=== PATIENT | male | born 1950 | race Caucasian/White ===

== ENCOUNTER → 2016-11-12 | Outpatient (CLI) | payer OTHER | LOC: FCPNEURO 20:30 | PROVIDERS: ATTEND Psychiatry & Neurology Sleep Medicine | DX: G47.33 Obstructive sleep apnea (adult) (pediatric) (principal); G47.39 Other sleep apnea ==

== ENCOUNTER 2017-12-05 13:44 | Emergency (ER) | payer OTHER ==
[2017-12-05 13:57] VITALS: RESP 16; TEMP 99.1
--- NOTE | 2017-12-05 14:53 | EDPHY ---
General - History Smoking Status: Never smoked Time Seen by Provider: 12/05/17 14:40 Narrative: CHIEF COMPLAINT: Fall, left hip pain HISTORY OF PRESENT ILLNESS: Patient complains of left groin and hip pain after fall earlier today. This happened around 9:15 a.m. While at [place]. He slipped in the parking lot. He says he actually landed on the right hip but felt the pain in the left side. It was at 1st mild. He was able to ski 2 rounds with some pain but able to do so. After this his pain has increased with active motion of the hip. It is minimal at rest. Does not radiate. No numbness or tingling. No head injury or loss of consciousness or headache. No chest or back pain. No neck pain. No abdominal pain. No injury to the right leg or either of his arms. No other associated complaints or modifying factors. REVIEW OF SYSTEMS: Ten systems reviewed and are negative unless otherwise noted in the HPI PCP: Dr. Dedra Reyes SPECIALISTS: Dr. Marie PAST MEDICAL HISTORY: Osteoarthritis, colitis, atrial fibrillation, sleep apnea PAST SURGICAL HISTORY: Plasty, right shoulder ORIF SOCIAL HISTORY: Never smoker. No drug or alcohol use. 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 No crepitus or deformity Respiratory: Lungs are clear to auscultation Cardiovascular: Regular rate and rhythm. No murmur. Symmetric DP and PT pulses 2+. Gastrointestinal: Abdomen is soft and nontender. No tympany rigidity. No evidence of inguinal hernia by examination. Back: non-tender, no bony abnormalities Neurological: A&O, nonfocal, antalgic but steady gait. Strength is symmetric in the lower extremities. No footdrop on the left. Skin: Warm and dry, no rash. No petechiae or purpura. No ecchymosis in the area of pain. Extremities: Nontender, no pedal edema Psychiatric: Mood and affect normal DIFFERENTIAL DIAGNOSES: Including but not limited to strain, sprain, fracture, dislocation, subluxation MDM: 2:40 p.m. Left hip pain status post fall today. There is pain over the inguinal canal with no obvious fracture on x-ray as read by me. He was able to bear weight after this, thus I have a low suspicion for fracture but I would like to rule this out definitively the CT scan. This will be done without contrast. The patient's spouse are comfortable this. He has declined pain medication. He is neurovascular intact. 3:05 p.m. Radiologist has read the plain film as negative for acute finding. CT scan is pending 3:55 p.m. Contacted by radiologist Dr. Yarrbough. CT scan of the hip without contrast discussed. There is a nondisplaced left superior pubic ramus fracture visualized only by CT scan. No other findings noted. The femur and hip are well intact. 4:10 p.m. Patient re-evaluated. I discussed the CT findings and showed the images to him. I discussed that this is a weight-bearing as tolerated, typically nonsurgical fracture. This pain is tolerable and he still does not want any narcotic pain medications. We will provide crutches and ambulate him in the [place]. I do feel he is stable for discharge home with pain medication as needed and orthopedic follow-up palpation. 4:35 p.m. Case discussed with orthopedist Dr. Salcido. He agrees with management this plan will see the patient this week in the clinic. I re-evaluated the patient informed him of this. He is doing well with crutches. His pain is tolerable. He is in no acute distress. He is discharged home stable condition with pain medication and plan as above. SUPERVISION: This patient was independently evaluated without direct involvement of or examination by the attending physician. (Abraham Jamison) Medical Decision Making: I did not see this patient while he was in the emergency department. However his care was discussed with the PA while the patient was in the department. I agree with treatment plan and management (Christiano Puckett) - Objective Vital Signs: Initial Vital Signs Temperature (C) 37.3 C 12/05/17 13:53 Heart Rate 72 12/05/17 13:53 Respiratory Rate 16 12/05/17 13:53 Blood Pressure 122/62 H 12/05/17 13:53 O2 Sat (%) 96 12/05/17 13:53 O2 Delivery Mode Room Air Allergies/Adverse Reactions: No Known Allergies Allergy (Unverified 12/05/17 13:51) Home Medications: Medication Instructions Recorded Aspirin [Aspirin 81mg (OTC)] 162 mg PO BID 02/14/12 Atorvastatin Calcium [Lipitor 10 10 mg PO DAILY 02/14/12 mg (RX)] Cholecalciferol Vit D3 [Vitamin D 800 units PO DAILY 02/14/12 400 units (OTC)] Multivitamin [Multiple Vitamins] 1 each PO DAILY 02/14/12 [place]-3 Fatty Acids/Fish Oil [Fish 1 each PO 02/14/12 Oil 1,000 mg Capsule] Ubidecarenone [Coenzyme Q10] 100 mg PO DAILY 02/14/12 Vitamin B Complex [Vitamin B 1 each PO DAILY 02/14/12 Complex (OTC)] sulfaSALAzine [Azulfidine 500 MG 1,000 mg PO BID 02/14/12 (RX)] Proferrin 12/05/17 Tamsulosin HCl 12/05/17 oxyCODONE HCL/ACETAMINOPHEN 1 each PO Q4-6PRN PRN #13 tablet 12/05/17 [Percocet 5-325 mg Tablet] Departure - Departure Disposition: Home, Routine, Self-Care Clinical Impression: Fracture of superior ramus of left pubis Condition: Good Instructions: Pelvic Fracture (ED) Additional Instructions: 1. Crutches as provided when ambulatory 2. Ibuprofen 400 mg every 6-8 hours as needed 3. Percocet pain medication as prescribed as needed 4. Contact the on-call orthopedist Dr. Salcido for outpatient care this week 5. ED precautions as discussed Referrals: Dedra Reyes MD [Primary Care Provider] - As per Instructions Tamara Salcido MD [Medical Doctor] - As per Instructions Prescriptions: oxyCODONE HCL/ACETAMINOPHEN [Percocet 5-325 mg Tablet] 1 each PO Q4-6PRN PRN # 13 tablet PRN Reason: Pain, Breakthrough
[2017-12-05 16:59] VITALS: BP 101/66; PULSE 67; O2SAT 93
== END 2017-12-05 16:58 | disposition home or self-care (01) ==
DX: S32.512A Fracture of superior rim of left pubis, initial encounter for closed fracture (principal); Z79.82 Long term (current) use of aspirin; W01.0XXA Fall on same level from slipping, tripping and stumbling without subsequent striking against object, initial encounter; Y92.481 Parking lot as the place of occurrence of the external cause; Y99.8 Other external cause status